=== PATIENT | female | born 1990 | race Two or more races ===

== ENCOUNTER 2019-01-02 17:37 | Emergency (ER) | payer BC ==
[~2019-01-02] VITALS: Ht 177.8 cm; Wt 83.9 kg
[~2019-01-02 17:37] MED LIST: CEFTIN500 MG PO; KETO10TA2 PO; URIN D.S. TABLE1 TAB PO
== END 2019-01-02 22:11 | disposition home or self-care (01) ==
LOC: ER 17:37
DX: R07.89 Other chest pain (principal); R06.02 Shortness of breath; F41.8 Other specified anxiety disorders

== ENCOUNTER 2019-01-23 18:56 | Emergency (ER) | payer BC ==
[~2019-01-23] VITALS: Ht 175.3 cm; Wt 80.7 kg
== END 2019-01-23 22:53 | disposition home or self-care (01) ==
LOC: ER 18:56
DX: R10.31 Right lower quadrant pain (principal)

== ENCOUNTER → 2019-06-20 | Emergency (ER) | payer BC ==
[~2019-06-20] VITALS: Ht 177.8 cm; Wt 86.2 kg
[~2019-06-20] MED LIST changes: +INDOMETHACIN; +ZITHROMAX500 MG PO
== END | disposition home or self-care (01) ==
LOC: ER 22:02
DX: B34.9 Viral infection, unspecified (principal); B96.0 Mycoplasma pneumoniae [M. pneumoniae] as the cause of diseases classified elsewhere

== ENCOUNTER 2019-09-06 21:22 | Emergency (ER) | payer OTHER ==
[~2019-09-06] VITALS: Ht 177.8 cm; Wt 88.5 kg
[2019-09-07] MEDS ORDERED: KETO10TA2 PO (05:54)
== END 2019-09-07 06:01 | disposition home or self-care (01) ==
LOC: ER 21:22
DX: N20.0 Calculus of kidney (principal); K59.09 Other constipation; R10.31 Right lower quadrant pain

== ENCOUNTER 2019-09-08 12:10 | Emergency (ER) | payer OTHER ==
[~2019-09-08] VITALS: Ht 177.8 cm; Wt 88.5 kg
== END 2019-09-08 21:36 | disposition home or self-care (01) ==
LOC: ER 12:10
DX: N20.0 Calculus of kidney (principal); N83.292 Other ovarian cyst, left side; K59.09 Other constipation; N28.1 Cyst of kidney, acquired; R10.31 Right lower quadrant pain

== ENCOUNTER 2020-11-28 11:29 | Emergency (ER) | payer OTHER ==
[~2020-11-28] VITALS: Ht 177.8 cm; Wt 86.2 kg
[2020-11-28] MEDS ORDERED: NORFLEX100MG PO (14:39)
[2020-11-28] MEDS ORDERED: KETO10TA2 PO (14:39)
== END 2020-11-28 14:46 | disposition home or self-care (01) ==
LOC: ER 11:29
DX: M54.5 Low back pain (principal)

== ENCOUNTER 2025-05-15 12:53 | Emergency (ER) | payer OTHER ==
[~2025-05-15] VITALS: Ht 177.8 cm; Wt 102.5 kg
[~2025-05-15 12:53] MED LIST changes: +NORFLEX100MG PO
[2025-05-15] MEDS ORDERED: 0.9 % SODIUM CHLORIDE 1,000 ML IV SCH (14:00)
[2025-05-15] MEDS ORDERED: FAMOTIDINE/PF 20 MG/2 ML VIAL IV ONE (14:00)
[2025-05-15] MEDS ORDERED: TAMSULOSIN HCL 0.4 MG CAP PO ONE (14:00)
[2025-05-15] MEDS ORDERED: KETOROLAC TROMETHAMINE 30 MG VIAL IV ONE (14:00)
[2025-05-15 15:32] LABS: BASO % 0.7 % (0.1-1.2); EOS # 0.20 (0.04-0.54); EOS % 2.2 % (0.7-7.0); LYMPH # 1.69 (1.18-3.74); LYMPH % 18.8 % (19.3-53.1); MEAN PLATELET VOLUME 10.20 fl (9.4-12.4); MONO # 0.37 (0.24-0.82); MONO % 4.1 % (4.7-12.5); NEUT # 6.63 (1.56-6.13); NEUT % 74.0 % (34.0-71.1); RED CELL DISTRIBUTION WIDTH 12.0 % (11.6-14.4)
[2025-05-15 15:53] LABS: ERYTHROCYTE SEDIMENTATION RATE 19 mm/hr (0-20)
[2025-05-15 15:55] LABS: ALT/SGPT 27.0 U/L (12-78); AST/SGOT 17.0 U/L (15-37); BILIRUBIN TOTAL 0.3 mg/dL (0.3-1.2); BUN CREA RATIO 13.0 (7.0-25.0); CREATININE SERUM 0.6 mg/dL (0.55-1.02); GFR 114.43; GLOBULINA 3.5 G/DL (2.4-3.5); GLUCOSE FASTING 92.0 mg/dL (65-100); OSMOLALITY SERUM 285.0 MOSM/KG (275-295)
[2025-05-15 17:24] LABS: URINE APPEARANCE Clear; URINE BILIRRUBIN Negative (NEGATIVE); URINE BLOOD Negative; URINE COLOR Yellow; URINE GLUCOSE Negative (NEGATIVE); URINE KETONE Negative (NEGATIVE); URINE LEUKOCYTE Small; URINE NITRATE Negative; URINE PROTEIN Negative (NEGATIVE); URINE UROBILINOGEN 0.2 E.U./dl
[2025-05-15 17:29] LABS: URINE BACTERIA 1690.8 uL (0.0-1933); URINE EPITHELIAL CELLS 13.9 uL (0.0-38.8); URINE RBC 52.3 uL (0.0-20.8); URINE WBC 18.7 uL (0.0-23.2)
[2025-05-15 17:36] LABS: URINE CAST 0.29 uL (0.0-1.40)
[2025-05-15] MEDS ORDERED: MACROBID 100 M100 MG PO (18:47)
[2025-05-15] MEDS ORDERED: PYRIDIUM100 MG PO (18:47)
== END 2025-05-15 18:59 | disposition home or self-care (01) ==
LOC: EMR PED 12:53 → ER 12:53
PROVIDERS: Student in an Organized Health Care Education/Training Program
DX: N39.0 Urinary tract infection, site not specified (principal); N20.0 Calculus of kidney; R10.9 Unspecified abdominal pain; Z88.5 Allergy status to narcotic agent; Z91.018 Allergy to other foods